=== PATIENT | male | born 1995 | race Caucasian/White ===

== ENCOUNTER 2016-08-23 12:25 | Emergency (ER) | payer SELFPAY | END 2016-08-23 14:50 | disposition home or self-care (01) | LOC: ER 12:25 | DX: J45.901 Unspecified asthma with (acute) exacerbation (principal); F17.210 Nicotine dependence, cigarettes, uncomplicated; Z79.899 Other long term (current) drug therapy | CPT/HCPCS: 87502; 96365; 96375 ==